=== PATIENT | female | born 1980 | race Two or more races ===

== ENCOUNTER 2017-09-19 09:42 | Emergency (ER) | payer OTHER ==
[~2017-09-19] VITALS: Ht 180.3 cm; Wt 108.9 kg
[2017-09-19] MEDS ORDERED: KETOROLAC TROMETH 60MG/2ML VIAL IM ONE (11:45)
[2017-09-19 13:02] VITALS: BP 139/89
== END 2017-09-19 13:13 | disposition home or self-care (01) ==
LOC: ER 09:42
DX: S66.912A Strain of unspecified muscle, fascia and tendon at wrist and hand level, left hand, initial encounter (principal); X58.XXXA Exposure to other specified factors, initial encounter; Y93.89 Activity, other specified; Y99.8 Other external cause status; Y92.89 Other specified places as the place of occurrence of the external cause
CPT/HCPCS: 96372; 99283; J1885